=== PATIENT | female | born 1960 | race African-American/Black ===

== ENCOUNTER 2023-09-04 15:58 | Inpatient (IN) | payer MEDICAID ==
[~2023-09-04] VITALS: Ht 165.1 cm; Wt 73.5 kg
[2023-09-04] MEDS ORDERED: ASPIRIN 81MG TABLET PO ONE (16:30)
[2023-09-04] MEDS ORDERED: NITROGLYCERIN 0.4MG TABLET SL SL PRN (16:30)
[2023-09-04 16:59] LABS: HEMATOCRIT. 29.7 % (36.0-48.0); HEMOGLOBIN. 9.5 g/dL (12.0-16.0); MEAN CORPUSCULAR HEMOGLOBIN 30.4 pg (28.0-32.0); MEAN CORPUSCULAR HGB CONC 31.9 g/dL (31.0-37.0); MEAN CORPUSCULAR VOLUME 95.2 fL (81.0-99.0); MEAN PLATELET VOLUME 10.1 fl (7.4-10.4); PLATELET 212 x1000/uL (130-400); RED BLOOD CELL COUNT 3.12 mill/uL (4.2-5.4); RED CELL DISTRIBUTION WIDTH 14.7 % (11.6-14.6); WHITE BLOOD COUNT 14.7 x1000/uL (4.5-11.0)
[2023-09-04 17:00] LABS: DIFFERENTIAL COMMENT 1
[2023-09-04 17:13] LABS: ALANINE AMINOTRANSFERASE 29 IU/L (10-49); ALBUMIN 3.7 g/dL (3.2-4.8); ASPARTATE AMINOTRANSFERASE 19 IU/L (<34); BILIRUBIN TOTAL 0.2 mg/dL (0.1-1.0); CALCIUM 9.2 mg/dL (8.7-10.4); CARBON DIOXIDE 25 mEq/L (21-32); CHLORIDE 97 mEq/L (98-107); GLUCOSE 177 mg/dL (70-105); POTASSIUM 5.4 mEq/L (3.5-5.1); PROTEIN TOTAL 7.3 g/dL (6.0-8.3); SODIUM 134 mEq/L (136-145); UREA NITROGEN BLOOD 55 mg/dL (9-23)
[2023-09-04 17:19] LABS: CREATININE 6.2 mg/dL (0.6-1.0); TROPONIN I HIGH SENSITIVITY 238 ng/L (3.0-34)
[2023-09-04 17:48] LABS: PLATELET ESTIMATE NORMAL
[2023-09-04 17:49] LABS: ANISOCYTOSIS 1+; OVALOCYTES 1+
[2023-09-04] MEDS ORDERED: CEFTRIAXONE 1GM PREMIX 50 ML IV ONE (18:00)
[2023-09-04] MEDS ORDERED: ACETAMINOPHEN 325MG TABLET PO PRN (20:15)
[2023-09-04] MEDS ORDERED: ONDANSETRON HCL 4MG/2ML INJ IV PRN (20:15)
[2023-09-04] MEDS ORDERED: DEXTROSE 50% WATER 50ML SYRINGE IV PRN (20:15)
[2023-09-04] MEDS ORDERED: IPRATROPIUM/ALBUTEROL 0.5-3(2.5)MG/3ML NEB HHN PRN (20:15)
[2023-09-04] MEDS ORDERED: VANCOMYCIN 1G PREMIX 200 ML IV SCH (20:15)
[2023-09-04 20:48] LABS: IRON 32 ug/dL (50-170); TOTAL IRON BINDING CAPACITY 292 ug/dl (250-425)
[2023-09-04 20:56] LABS: FERRITIN 1557 ng/mL (10-291); FOLIC ACID (FOLATE) SERUM 14.63 ng/mL (>5.38); VITAMIN B12 SERUM 1226 pg/mL (211-911)
[2023-09-04 20:58] LABS: PARTIAL THROMBOPLASTIN TIME 77.7 sec (23.4-31.0)
[2023-09-04] MEDS: INSULIN LISPRO 100 UNITS/ML SUBCUT SCH (21:00)
[2023-09-04] MEDS: PIPERACILLIN/TAZO 3.375G/50ML 50 ML IV SCH (21:00)
[2023-09-04] MEDS ORDERED: VANCOMYCIN 1.5GM/250ML IV NR (21:00)
[2023-09-04] MEDS: ENOXAPARIN 30MG/0.3ML SYR SUBCUT SCH (21:00)
[2023-09-04] MEDS: BLOOD SUGAR DIAGNOSTIC STRIP TEST SCH (21:00)
[2023-09-05] VITALS (13 sets, daily range): BP systolic 151–186; BP diastolic 71–93; PULSE 86–104; RESP 14–19; TEMP 97.8–99.5
[2023-09-05 04:41] LABS: HEMATOCRIT. 30.1 % (36.0-48.0); HEMOGLOBIN. 9.8 g/dL (12.0-16.0); MEAN CORPUSCULAR HEMOGLOBIN 30.6 pg (28.0-32.0); MEAN CORPUSCULAR HGB CONC 32.4 g/dL (31.0-37.0); MEAN CORPUSCULAR VOLUME 94.5 fL (81.0-99.0); MEAN PLATELET VOLUME 9.9 fl (7.4-10.4); PLATELET 239 x1000/uL (130-400); RED BLOOD CELL COUNT 3.19 mill/uL (4.2-5.4); RED CELL DISTRIBUTION WIDTH 14.8 % (11.6-14.6)
[2023-09-05 04:51] LABS: DIFFERENTIAL COMMENT 1
[2023-09-05 05:05] LABS: ALANINE AMINOTRANSFERASE 21 IU/L (10-49); ALBUMIN 3.5 g/dL (3.2-4.8); ASPARTATE AMINOTRANSFERASE 11 IU/L (<34); BILIRUBIN TOTAL 0.2 mg/dL (0.1-1.0); CALCIUM 9.3 mg/dL (8.7-10.4); CARBON DIOXIDE 25 mEq/L (21-32); CHLORIDE 98 mEq/L (98-107); CHOLESTEROL 151 mg/dL (<200); GLUCOSE 163 mg/dL (70-105); HDL CHOLESTEROL 47 mg/dL (>65); LDL CHOLESTEROL 71 mg/dL (5-100); POTASSIUM 5.7 mEq/L (3.5-5.1); PROTEIN TOTAL 6.9 g/dL (6.0-8.3); SODIUM 135 mEq/L (136-145); T4 FREE 1.18 ng/dL (0.89-1.76); TRIGLYCERIDE 79 mg/dL (0-150); UREA NITROGEN BLOOD 59 mg/dL (9-23)
[2023-09-05 05:33] LABS: CREATININE 6.9 mg/dL (0.6-1.0)
[2023-09-05 05:46] LABS: PLATELET ESTIMATE NORMAL
[2023-09-05] MEDS ORDERED: VANCOMYCIN 1.5GM/250ML IV NR (06:15)
[2023-09-05] MEDS: INSULIN LISPRO 100 UNITS/ML SUBCUT SCH ×4 (08:20→21:37)
[2023-09-05] MEDS: PIPERACILLIN/TAZO 3.375G/50ML 50 ML IV SCH ×2 (09:00→21:26)
[2023-09-05] MEDS: BLOOD SUGAR DIAGNOSTIC STRIP TEST SCH ×4 (10:12→21:37)
[2023-09-05] MEDS: PANTOPRAZOLE SODIUM 40 MG/VIAL IV SCH (10:13)
[2023-09-05] MEDS ORDERED: NIFE-33 PO (10:51)
[2023-09-05] MEDS ORDERED: SITA50TA3 PO (10:51)
[2023-09-05] MEDS ORDERED: LABE200T9 PO (10:51)
[2023-09-05] MEDS ORDERED: BUME2TAB7 PO (10:51)
[2023-09-05] MEDS ORDERED: ATOR-2 PO (10:51)
[2023-09-05] MEDS ORDERED: MULT-1116 PO (10:51)
[2023-09-05] MEDS ORDERED: SEVE800T25 PO (10:51)
[2023-09-05] MEDS ORDERED: XALAO EACHEYE (10:51)
[2023-09-05] MEDS ORDERED: DORZ10DR8 EACHEYE (10:51)
[2023-09-05] MEDS ORDERED: INSULIN REGULAR (HUMULIN R) 300UNITS/3ML VIAL IV NR (12:30)
[2023-09-05] MEDS ORDERED: DEXTROSE 50% WATER 50ML SYRINGE IV NR (12:30)
[2023-09-05] MEDS: CLONIDINE 0.1MG TABLET PO PRN ×2 (12:47→21:26)
[2023-09-05] MEDS ORDERED: CALCIUM CHLORIDE 1,000 MG in DEXT 5% WATER 90 ML IV NR (13:30)
[2023-09-05 13:32] LABS: CREATINE KINASE MB FRACTION 2.9 ng/mL (0.5-3.6)
[2023-09-05 14:08] LABS: HEPATITIS A AB IGM NEGATIVE (Negative); HEPATITIS B CORE AB IGM NEGATIVE (Negative); HEPATITIS B SURFACE ANTIGEN NEGATIVE (Negative); HEPATITIS C AB NON REACTIVE (Neg) (Negative)
[2023-09-05] MEDS ORDERED: ASCO500C18 PO (17:37)
[2023-09-05 18:23] LABS: CALCIUM 9.3 mg/dL (8.7-10.4); POTASSIUM 4.5 mEq/L (3.5-5.1)
[2023-09-05 18:30] LABS: CREATININE 4.4 mg/dL (0.6-1.0)
[2023-09-05] MEDS: ACETAMINOPHEN 325MG TABLET PO PRN (21:27)
[2023-09-05] MEDS: ENOXAPARIN 30MG/0.3ML SYR SUBCUT SCH (21:35)
[2023-09-06 00:46] VITALS: BP 144/75; PULSE 94; RESP 19; TEMP 97.3
[2023-09-06 04:00] VITALS: BP 192/88; PULSE 59; RESP 18; TEMP 97.5
[2023-09-06] MEDS: BLOOD SUGAR DIAGNOSTIC STRIP TEST SCH ×4 (06:51→21:48)
[2023-09-06] MEDS: ACETAMINOPHEN 325MG TABLET PO PRN (07:11)
[2023-09-06 08:00] VITALS: BP 179/99; PULSE 94; RESP 18; TEMP 99.3
[2023-09-06] MEDS: INSULIN LISPRO 100 UNITS/ML SUBCUT SCH ×4 (08:10→21:54)
[2023-09-06] MEDS: PANTOPRAZOLE SODIUM 40 MG/VIAL IV SCH (08:44)
[2023-09-06 11:39] LABS: HEMATOCRIT. 29.1 % (36.0-48.0); HEMOGLOBIN. 9.1 g/dL (12.0-16.0); MEAN CORPUSCULAR HEMOGLOBIN 30.1 pg (28.0-32.0); MEAN CORPUSCULAR HGB CONC 31.3 g/dL (31.0-37.0); MEAN CORPUSCULAR VOLUME 96.2 fL (81.0-99.0); MEAN PLATELET VOLUME 9.9 fl (7.4-10.4); PLATELET 249 x1000/uL (130-400); RED BLOOD CELL COUNT 3.02 mill/uL (4.2-5.4); RED CELL DISTRIBUTION WIDTH 14.9 % (11.6-14.6); WHITE BLOOD COUNT 12.6 x1000/uL (4.5-11.0)
[2023-09-06 11:46] LABS: DIFFERENTIAL COMMENT 1
[2023-09-06 12:00] VITALS: BP 173/86; PULSE 95; RESP 18; TEMP 99.9
[2023-09-06 12:03] LABS: CALCIUM 9.3 mg/dL (8.7-10.4); POTASSIUM 4.9 mEq/L (3.5-5.1)
[2023-09-06] MEDS: PIPERACILLIN/TAZO 3.375G/50ML 50 ML IV SCH ×3 (12:32→22:40)
[2023-09-06 12:46] LABS: TROPONIN I HIGH SENSITIVITY 418 ng/L (3.0-34)
[2023-09-06 12:49] LABS: CREATININE 5.4 mg/dL (0.6-1.0)
[2023-09-06 16:00] VITALS: BP 189/90; PULSE 96; RESP 18; TEMP 99
[2023-09-06 16:23] LABS: PLATELET ESTIMATE NORMAL
[2023-09-06] MEDS: CLONIDINE 0.1MG TABLET PO PRN (17:19)
[2023-09-06 20:00] VITALS: BP 171/105; PULSE 100; RESP 20; TEMP 101.7
[2023-09-06] MEDS ORDERED: VANCOMYCIN 750MG PREMIX 150 ML IV NR (20:00)
[2023-09-06] MEDS: LATANOPROST 0.005% OPHTH DROPS 2.5ML EACHEYE SCH (20:37)
[2023-09-06] MEDS: ENOXAPARIN 30MG/0.3ML SYR SUBCUT SCH (21:50)
[2023-09-07] VITALS (13 sets, daily range): BP systolic 128–199; BP diastolic 71–103; PULSE 78–99; RESP 16–20; TEMP 97.8–98.7
[2023-09-07] MEDS: BLOOD SUGAR DIAGNOSTIC STRIP TEST SCH ×4 (07:40→21:00)
[2023-09-07] MEDS: INSULIN LISPRO 100 UNITS/ML SUBCUT SCH ×4 (08:08→21:00)
[2023-09-07] MEDS: PIPERACILLIN/TAZO 3.375G/50ML 50 ML IV SCH ×2 (09:09→21:44)
[2023-09-07] MEDS: PANTOPRAZOLE SODIUM 40 MG/VIAL IV SCH (09:09)
[2023-09-07 10:06] LABS: BASOPHILS % 0.3 % (0.0-2.0); EOSINOPHILS % 1.8 % (0.0-5.0); HEMATOCRIT. 28.7 % (36.0-48.0); HEMOGLOBIN. 8.8 g/dL (12.0-16.0); LYMPHOCYTES % 8.8 % (20.0-50.0); MEAN CORPUSCULAR HEMOGLOBIN 29.6 pg (28.0-32.0); MEAN CORPUSCULAR HGB CONC 30.7 g/dL (31.0-37.0); MEAN CORPUSCULAR VOLUME 96.4 fL (81.0-99.0); MONOCYTES % 7.4 % (2.0-8.0); NEUTROPHILS % 81.7 % (40.0-76.0); PLATELET 246 x1000/uL (130-400); RED BLOOD CELL COUNT 2.98 mill/uL (4.2-5.4); RED CELL DISTRIBUTION WIDTH 14.6 % (11.6-14.6); WHITE BLOOD COUNT 11.8 x1000/uL (4.5-11.0)
[2023-09-07 10:40] LABS: POTASSIUM 5.2 mEq/L (3.5-5.1)
[2023-09-07] MEDS: AMLODIPINE 10MG TABLET PO SCH (16:03)
[2023-09-07] MEDS: LATANOPROST 0.005% OPHTH DROPS 2.5ML EACHEYE SCH (21:00)
[2023-09-07] MEDS ORDERED: VANCOMYCIN 500MG PREMIX 100 ML IV SCH (21:00)
[2023-09-07] MEDS: CARVEDILOL 3.125 MG TABLET PO SCH (21:46)
[2023-09-07] MEDS: ENOXAPARIN 30MG/0.3ML SYR SUBCUT SCH (21:46)
[2023-09-07] MEDS: CLONIDINE 0.1MG TABLET PO PRN (21:50)
[2023-09-08] VITALS: BP 146/62; PULSE 89; RESP 18; TEMP 98
[2023-09-08 04:00] VITALS: BP 138/72; PULSE 92; RESP 19; TEMP 98.2
[2023-09-08] MEDS ORDERED: LIDOCAINE HCL 1% 10 MG/ML 10ML VIAL ONE (07:18)
[2023-09-08] MEDS: BLOOD SUGAR DIAGNOSTIC STRIP TEST SCH ×4 (07:40→21:27)
[2023-09-08 08:00] VITALS: BP 159/83; PULSE 83; RESP 20; TEMP 97
[2023-09-08] MEDS: INSULIN LISPRO 100 UNITS/ML SUBCUT SCH ×4 (08:10→21:27)
[2023-09-08] MEDS: CARVEDILOL 3.125 MG TABLET PO SCH ×2 (09:00→21:26)
[2023-09-08] MEDS: AMLODIPINE 10MG TABLET PO SCH (09:00)
[2023-09-08] MEDS: PIPERACILLIN/TAZO 3.375G/50ML 50 ML IV SCH ×2 (09:00→21:26)
[2023-09-08] MEDS: FAMOTIDINE 20MG/2ML VIAL IV SCH (09:00)
[2023-09-08 11:03] LABS: BASOPHILS % 0.4 % (0.0-2.0); EOSINOPHILS % 1.4 % (0.0-5.0); HEMATOCRIT. 29.7 % (36.0-48.0); HEMOGLOBIN. 9.8 g/dL (12.0-16.0); LYMPHOCYTES % 7.8 % (20.0-50.0); MEAN CORPUSCULAR HEMOGLOBIN 31.1 pg (28.0-32.0); MEAN CORPUSCULAR HGB CONC 32.9 g/dL (31.0-37.0); MEAN CORPUSCULAR VOLUME 94.6 fL (81.0-99.0); MEAN PLATELET VOLUME 9.7 fl (7.4-10.4); MONOCYTES % 6.1 % (2.0-8.0); NEUTROPHILS % 84.3 % (40.0-76.0); PLATELET 290 x1000/uL (130-400); RED BLOOD CELL COUNT 3.13 mill/uL (4.2-5.4); RED CELL DISTRIBUTION WIDTH 14.7 % (11.6-14.6)
[2023-09-08 11:19] LABS: CALCIUM 9.1 mg/dL (8.7-10.4); POTASSIUM 4.3 mEq/L (3.5-5.1)
[2023-09-08 12:00] VITALS: BP 140/85; PULSE 87; RESP 20; TEMP 97.8
[2023-09-08 16:00] VITALS: BP 129/76; PULSE 80; RESP 20; TEMP 97.2
[2023-09-08] MEDS ORDERED: HYDROCODONE/ACETAMINOPHEN 5/325MG TABLET PO PRN (17:15)
[2023-09-08 20:00] VITALS: BP 185/84; PULSE 94; RESP 19; TEMP 98
[2023-09-08] MEDS: LATANOPROST 0.005% OPHTH DROPS 2.5ML EACHEYE SCH (21:26)
[2023-09-08] MEDS: ENOXAPARIN 30MG/0.3ML SYR SUBCUT SCH (21:27)
[2023-09-08] MEDS: CLONIDINE 0.1MG TABLET PO PRN (21:29)
[2023-09-08] MEDS: ACETAMINOPHEN 325MG TABLET PO PRN (21:51)
[2023-09-09] VITALS (7 sets, daily range): BP systolic 67–157; BP diastolic 71–91; PULSE 80–90; RESP 18–20; TEMP 97–97.5
[2023-09-09] MEDS: BLOOD SUGAR DIAGNOSTIC STRIP TEST SCH ×4 (07:40→21:24)
[2023-09-09] MEDS: INSULIN LISPRO 100 UNITS/ML SUBCUT SCH ×4 (08:10→21:28)
[2023-09-09] MEDS: PIPERACILLIN/TAZO 3.375G/50ML 50 ML IV SCH (09:00)
[2023-09-09] MEDS: FAMOTIDINE 20MG/2ML VIAL IV SCH (09:00)
[2023-09-09] MEDS: CARVEDILOL 3.125 MG TABLET PO SCH ×2 (10:37→21:23)
[2023-09-09] MEDS: AMLODIPINE 10MG TABLET PO SCH (10:37)
[2023-09-09] MEDS ORDERED: CEFTRIAXONE SODIUM 1G VIAL IM SCH (14:30)
[2023-09-09] MEDS ORDERED: FAMOTIDINE 20MG TABLET PO SCH (20:00)
[2023-09-09] MEDS: ENOXAPARIN 30MG/0.3ML SYR SUBCUT SCH (21:21)
[2023-09-09] MEDS: ACETAMINOPHEN 325MG TABLET PO PRN (21:21)
[2023-09-09] MEDS: LATANOPROST 0.005% OPHTH DROPS 2.5ML EACHEYE SCH (21:39)
[2023-09-10] VITALS (12 sets, daily range): BP systolic 148–199; BP diastolic 72–95; PULSE 82–92; RESP 18–20; TEMP 97.2–98.4
[2023-09-10] MEDS: BLOOD SUGAR DIAGNOSTIC STRIP TEST SCH ×4 (07:40→21:13)
[2023-09-10] MEDS: INSULIN LISPRO 100 UNITS/ML SUBCUT SCH ×4 (08:10→21:13)
[2023-09-10] MEDS: FAMOTIDINE 20MG/2ML VIAL IV SCH (09:00)
[2023-09-10] MEDS: AMLODIPINE 10MG TABLET PO SCH (10:06)
[2023-09-10] MEDS: CLONIDINE 0.1MG TABLET PO PRN (10:06)
[2023-09-10] MEDS: CARVEDILOL 3.125 MG TABLET PO SCH ×2 (10:06→21:09)
[2023-09-10] MEDS ORDERED: LIDOCAINE HCL 1% 10 MG/ML 10ML VIAL ONE (12:53)
[2023-09-10] MEDS ORDERED: CEFTRIAXONE 2GM/50ML (ADDEASE) 50 ML IV SCH (17:45)
[2023-09-10] MEDS: CEFTRIAXONE SODIUM 2G VIAL IM SCH (18:56)
[2023-09-10] MEDS ORDERED: LIDOCAINE HCL 1% 10 MG/ML 5ML VIAL INJ ONE (19:00)
[2023-09-10] MEDS ORDERED: CEFTRIAXONE 2 G in DEXTROSE 5% WATER 50 ML IV SCH (20:00)
[2023-09-10] MEDS ORDERED: CEFAZOLIN 2GM/100ML 100 ML IV SCH ×2 (21:00→22:00)
[2023-09-10] MEDS: LATANOPROST 0.005% OPHTH DROPS 2.5ML EACHEYE SCH (21:09)
[2023-09-10] MEDS: ENOXAPARIN 30MG/0.3ML SYR SUBCUT SCH (21:09)
[2023-09-10 21:31] LABS: BASOPHILS % 0.7 % (0.0-2.0); HEMATOCRIT. 28.2 % (36.0-48.0); LYMPHOCYTES % 15.9 % (20.0-50.0); MEAN CORPUSCULAR HEMOGLOBIN 30.3 pg (28.0-32.0); MEAN CORPUSCULAR VOLUME 94.5 fL (81.0-99.0); MEAN PLATELET VOLUME 9.3 fl (7.4-10.4); MONOCYTES % 7.3 % (2.0-8.0); NEUTROPHILS % 73.1 % (40.0-76.0); PLATELET 326 x1000/uL (130-400); RED BLOOD CELL COUNT 2.98 mill/uL (4.2-5.4); RED CELL DISTRIBUTION WIDTH 14.4 % (11.6-14.6); WHITE BLOOD COUNT 8.9 x1000/uL (4.5-11.0)
[2023-09-10 21:45] LABS: CALCIUM 8.6 mg/dL (8.7-10.4); POTASSIUM 4.7 mEq/L (3.5-5.1)
[2023-09-10 21:46] LABS: CREATININE 7.4 mg/dL (0.6-1.0)
[2023-09-10 22:23] LABS: HEPATITIS A AB IGM NEGATIVE (Negative); HEPATITIS B CORE AB IGM NEGATIVE (Negative); HEPATITIS B SURFACE ANTIGEN NEGATIVE (Negative); HEPATITIS C AB NON REACTIVE (Neg) (Negative)
[2023-09-11] VITALS (12 sets, daily range): BP systolic 122–190; BP diastolic 60–98; PULSE 81–86; RESP 18–20; TEMP 97.8–98.5
[2023-09-11] MEDS: CLONIDINE 0.1MG TABLET PO PRN (01:18)
[2023-09-11] MEDS: ACETAMINOPHEN 325MG TABLET PO PRN ×2 (01:18→21:50)
[2023-09-11] MEDS: INSULIN LISPRO 100 UNITS/ML SUBCUT SCH ×4 (07:07→21:39)
[2023-09-11] MEDS: BLOOD SUGAR DIAGNOSTIC STRIP TEST SCH ×4 (07:07→21:08)
[2023-09-11] MEDS ORDERED: FAMOTIDINE 20MG TABLET PO SCH (09:00)
[2023-09-11] MEDS: CARVEDILOL 3.125 MG TABLET PO SCH ×2 (09:06→21:33)
[2023-09-11] MEDS: AMLODIPINE 10MG TABLET PO SCH (09:07)
[2023-09-11] MEDS ORDERED: CEFA2PLA9 IV (10:16)
[2023-09-11 18:03] LABS: BASOPHILS % 0.5 % (0.0-2.0); HEMATOCRIT. 28.3 % (36.0-48.0); HEMOGLOBIN. 9.2 g/dL (12.0-16.0); LYMPHOCYTES % 14.9 % (20.0-50.0); MEAN CORPUSCULAR HEMOGLOBIN 30.9 pg (28.0-32.0); MEAN CORPUSCULAR HGB CONC 32.4 g/dL (31.0-37.0); MEAN CORPUSCULAR VOLUME 95.4 fL (81.0-99.0); MEAN PLATELET VOLUME 8.9 fl (7.4-10.4); MONOCYTES % 8.1 % (2.0-8.0); NEUTROPHILS % 73.5 % (40.0-76.0); PLATELET 310 x1000/uL (130-400); RED BLOOD CELL COUNT 2.97 mill/uL (4.2-5.4); RED CELL DISTRIBUTION WIDTH 14.8 % (11.6-14.6); WHITE BLOOD COUNT 8.5 x1000/uL (4.5-11.0)
[2023-09-11] MEDS: CEFTRIAXONE SODIUM 2G VIAL IM SCH (18:04)
[2023-09-11 18:16] LABS: CALCIUM 8.4 mg/dL (8.7-10.4); POTASSIUM 4.6 mEq/L (3.5-5.1)
[2023-09-11 18:30] LABS: CREATININE 5.1 mg/dL (0.6-1.0)
[2023-09-11 18:55] LABS: HEPATITIS A AB IGM NEGATIVE (Negative); HEPATITIS B CORE AB IGM NEGATIVE (Negative); HEPATITIS B SURFACE ANTIGEN NEGATIVE (Negative); HEPATITIS C AB NON REACTIVE (Neg) (Negative)
[2023-09-11] MEDS ORDERED: LIDOCAINE HCL 1% 10 MG/ML 5ML VIAL INJ SCH (19:00)
[2023-09-11] MEDS: LATANOPROST 0.005% OPHTH DROPS 2.5ML EACHEYE SCH (21:33)
[2023-09-11] MEDS: ENOXAPARIN 30MG/0.3ML SYR SUBCUT SCH (21:39)
[2023-09-12] VITALS (14 sets, daily range): BP systolic 148–184; BP diastolic 68–91; PULSE 74–87; RESP 16–20; TEMP 97.1–98; O2SAT 97
[2023-09-12] MEDS: CLONIDINE 0.1MG TABLET PO PRN (04:39)
[2023-09-12] MEDS: BLOOD SUGAR DIAGNOSTIC STRIP TEST SCH ×2 (07:40→11:43)
[2023-09-12] MEDS: CARVEDILOL 3.125 MG TABLET PO SCH (08:32)
[2023-09-12] MEDS: AMLODIPINE 10MG TABLET PO SCH (08:42)
[2023-09-12] MEDS: INSULIN LISPRO 100 UNITS/ML SUBCUT SCH ×2 (08:48→12:54)
== END 2023-09-12 13:50 | DRG 721 ==
LOC: ER 15:58 → 7WST 18:47 → EDBEDREQ 18:53
PROVIDERS: ADMIT Internal Medicine; ATTEND Internal Medicine
PROC: 5A1D70Z Performance of Urinary Filtration, Intermittent, Less than 6 Hours Per Day (ICD-10-PCS; 2023-09-05)
PROC: 5A1D70Z Performance of Urinary Filtration, Intermittent, Less than 6 Hours Per Day (ICD-10-PCS; 2023-09-07)
PROC: 05PYX3Z Removal of Infusion Device from Upper Vein, External Approach (ICD-10-PCS; principal; 2023-09-08)
PROC: 5A1D70Z Performance of Urinary Filtration, Intermittent, Less than 6 Hours Per Day (ICD-10-PCS; 2023-09-10)
PROC: 02HV33Z Insertion of Infusion Device into Superior Vena Cava, Percutaneous Approach (ICD-10-PCS; 2023-09-11)
PROC: B548ZZA Ultrasonography of Superior Vena Cava, Guidance (ICD-10-PCS; 2023-09-11)
PROC: B5181ZA Fluoroscopy of Superior Vena Cava using Low Osmolar Contrast, Guidance (ICD-10-PCS; 2023-09-11)
PROC: 5A1D70Z Performance of Urinary Filtration, Intermittent, Less than 6 Hours Per Day (ICD-10-PCS; 2023-09-11)
PROC: 5A1D70Z Performance of Urinary Filtration, Intermittent, Less than 6 Hours Per Day (ICD-10-PCS; 2023-09-12)
DX: T80.211A Bloodstream infection due to central venous catheter, initial encounter (principal); A41.01 Sepsis due to Methicillin susceptible Staphylococcus aureus; I31.39 Other pericardial effusion (noninflammatory); I13.2 Hypertensive heart and chronic kidney disease with heart failure and with stage 5 chronic kidney disease, or end stage renal disease; I21.A1 Myocardial infarction type 2; I50.20 Unspecified systolic (congestive) heart failure; J18.9 Pneumonia, unspecified organism; D63.8 Anemia in other chronic diseases classified elsewhere; E87.1 Hypo-osmolality and hyponatremia; E11.319 Type 2 diabetes mellitus with unspecified diabetic retinopathy without macular edema; N18.6 End stage renal disease; E11.22 Type 2 diabetes mellitus with diabetic chronic kidney disease; E87.5 Hyperkalemia; H54.8 Legal blindness, as defined in USA; E78.5 Hyperlipidemia, unspecified; I16.0 Hypertensive urgency; I42.9 Cardiomyopathy, unspecified; Z79.899 Other long term (current) drug therapy; Z86.73 Personal history of transient ischemic attack (TIA), and cerebral infarction without residual deficits; Z88.6 Allergy status to analgesic agent; Z99.2 Dependence on renal dialysis; Z79.84 Long term (current) use of oral hypoglycemic drugs; Y84.1 Kidney dialysis as the cause of abnormal reaction of the patient, or of later complication, without mention of misadventure at the time of the procedure; Y92.89 Other specified places as the place of occurrence of the external cause
CPT/HCPCS: 36415; 36556; 36589; 71045; 76937; 77001; 78580; 80048; 80053; 80061; 80202; 82550; 82553; 82607; 82728; 82746; 82962; 83036; 83540; 83550; 83605; 83735; 83880; 84100; 84145; 84439; 84443; 84484; 85025; 85379; 86705; 86709; 87070; 87077; 87186; 87340; 90935; 93005; 93306; 93970; 99291; C1752; C1893; C9113; J0690; J0696; J1642; J1650; J1815; J2405; J2543; J3370; J3490; J7060

== ENCOUNTER 2024-06-03 18:05 | Inpatient (IN) | payer MEDICAID ==
[~2024-06-03] VITALS: Ht 162.6 cm; Wt 71.2 kg
[~2024-06-03 18:05] MED LIST: ASCO500C18 PO; ATOR-2 PO; BUME2TAB7 PO; CEFA2PLA9 IV; DORZ10DR8 EACHEYE; LABE200T9 PO; MULT-1116 PO; NIFE-33 PO; SEVE800T25 PO; SITA50TA3 PO; XALAO EACHEYE
[2024-06-03 18:33] VITALS: O2SAT 99
[2024-06-03] MEDS ORDERED: CLONIDINE 0.2MG TABLET PO ONE (19:45)
[2024-06-03 20:04] LABS: CHLORIDE 102 mEq/L (98-107); POTASSIUM 4.7 mEq/L (3.5-5.1); SODIUM 140 mEq/L (136-145)
[2024-06-03 20:05] LABS: CALCIUM 9.6 mg/dL (8.7-10.4); CARBON DIOXIDE 32 mEq/L (21-32)
[2024-06-03 20:08] LABS: D-DIMER 2.87 mg/L FEU (<0.50); PARTIAL THROMBOPLASTIN TIME 46.4 sec (23.4-31.0); PROTHROMBIN TIME 11.5 sec (9.6-11.0)
[2024-06-03 20:09] LABS: BASOPHILS % 1.4 % (0.0-2.0); EOSINOPHILS % 3.9 % (0.0-5.0); HEMATOCRIT. 34.6 % (36.0-48.0); HEMOGLOBIN. 11.5 g/dL (12.0-16.0); LYMPHOCYTES % 14.5 % (20.0-50.0); MEAN CORPUSCULAR HEMOGLOBIN 31.2 pg (28.0-32.0); MEAN CORPUSCULAR HGB CONC 33.3 g/dL (31.0-37.0); MEAN CORPUSCULAR VOLUME 93.5 fL (81.0-99.0); MONOCYTES % 7.6 % (2.0-8.0); NEUTROPHILS % 72.6 % (40.0-76.0); RED CELL DISTRIBUTION WIDTH 15.8 % (11.6-14.6); WHITE BLOOD COUNT 5.2 x1000/uL (4.5-11.0)
[2024-06-03 20:10] LABS: GLUCOSE 144 mg/dL (70-105); UREA NITROGEN BLOOD 26 mg/dL (9-23)
[2024-06-03 20:12] LABS: DIFFERENTIAL COMMENT 1
[2024-06-03 20:13] LABS: CREATININE 3.2 mg/dL (0.6-1.0)
[2024-06-03 20:18] LABS: TROPONIN I HIGH SENSITIVITY 156 ng/L (3.0-34)
[2024-06-03] MEDS: MORPHINE SULFATE 4 MG/ML INJ (FOR IV/IM USE) IV STA (20:42)
[2024-06-03] MEDS: ONDANSETRON HCL 4MG/2ML INJ IV STA (20:42)
[2024-06-03] MEDS: ASPIRIN 325MG EC TABLET PO ONE (21:04)
[2024-06-03] MEDS: NITROGLYCERIN 0.4MG TABLET SL SL ONE (21:04)
[2024-06-03] MEDS: CLONIDINE 0.1MG TABLET PO NR (21:04)
[2024-06-03 21:10] LABS: MEAN PLATELET VOLUME 11.5 fl (7.4-10.4); PLATELET 164 x1000/uL (130-400)
[2024-06-03] MEDS: HYDRALAZINE 20MG/ML VIAL IV ONE (22:04)
[2024-06-04 00:20] VITALS: BP 168/101; PULSE 106; RESP 18; TEMP 36.14
[2024-06-04] MEDS ORDERED: ONDANSETRON HCL 4MG/2ML INJ IV PRN (01:00)
[2024-06-04] MEDS ORDERED: NON FORMULARY MED XX SCH ×5 (01:15)
[2024-06-04] MEDS ORDERED: DEXTROSE 50% WATER 50ML SYRINGE IV PRN (01:30)
[2024-06-04 04:00] VITALS: BP 164/85; PULSE 82; RESP 17; TEMP 36.00288; O2SAT 99
[2024-06-04] MEDS: BLOOD SUGAR DIAGNOSTIC STRIP TEST SCH (07:17)
[2024-06-04] MEDS: INSULIN LISPRO 100 UNITS/ML SUBCUT SCH (07:17)
[2024-06-04 08:00] VITALS: BP 192/100; PULSE 85; RESP 18; TEMP 37.11408; O2SAT 99
[2024-06-04] MEDS: NIFEDIPINE XL 90MG TAB PO SCH (08:32)
[2024-06-04] MEDS: MULTIVITAMINS,THER W-MINERALS TABLET PO SCH (08:32)
[2024-06-04] MEDS: SEVELAMER CARBONATE 800 MG TABLET PO SCH (08:32)
[2024-06-04] MEDS: LABETALOL HCL 200MG TABLET PO SCH (08:32)
[2024-06-04] MEDS: ASCORBIC ACID 500 MG TABLET PO SCH (08:33)
[2024-06-04] MEDS: BUMETANIDE 1MG TABLET PO SCH (08:33)
[2024-06-04] MEDS: ACETAMINOPHEN 325MG TABLET PO PRN (08:36)
[2024-06-04] MEDS: DORZOLAMIDE 2% OPHTH 10 ML BOTTLE EACHEYE SCH (09:00)
[2024-06-04 09:01] LABS: BASOPHILS % 1.5 % (0.0-2.0); HEMATOCRIT. 30.4 % (36.0-48.0); HEMOGLOBIN. 10.3 g/dL (12.0-16.0); LYMPHOCYTES % 21.4 % (20.0-50.0); MEAN CORPUSCULAR HGB CONC 33.8 g/dL (31.0-37.0); MEAN CORPUSCULAR VOLUME 94.7 fL (81.0-99.0); MEAN PLATELET VOLUME 10.9 fl (7.4-10.4); MONOCYTES % 8.9 % (2.0-8.0); NEUTROPHILS % 65.2 % (40.0-76.0); PLATELET 158 x1000/uL (130-400); RED BLOOD CELL COUNT 3.22 mill/uL (4.2-5.4); RED CELL DISTRIBUTION WIDTH 15.6 % (11.6-14.6); WHITE BLOOD COUNT 4.2 x1000/uL (4.5-11.0)
[2024-06-04 09:32] LABS: CALCIUM 9.7 mg/dL (8.7-10.4)
[2024-06-04 09:37] LABS: CREATININE 3.7 mg/dL (0.6-1.0)
[2024-06-04 12:00] VITALS: BP 175/89; PULSE 77; RESP 18; TEMP 37.05852; O2SAT 99
[2024-06-04] MEDS: LOSARTAN 50 MG TABLET PO SCH ×2 (13:16→21:12)
[2024-06-04 16:00] VITALS: BP 189/101; PULSE 78; RESP 18; TEMP 37.05852; O2SAT 98
[2024-06-04 16:33] LABS: HEPATITIS B SURFACE ANTIGEN NEGATIVE (Negative)
[2024-06-04 16:49] LABS: TROPONIN I HIGH SENSITIVITY 166 ng/L (3.0-34)
[2024-06-04 16:54] LABS: HEPATITIS A AB IGM NEGATIVE (Negative); HEPATITIS B CORE AB IGM NEGATIVE (Negative)
[2024-06-04 16:55] LABS: HEPATITIS C AB NON REACTIVE (Neg) (Negative)
[2024-06-04] MEDS: ASPIRIN 81MG TABLET PO SCH (16:57)
[2024-06-04] MEDS: ISOSORBIDE MONONITRATE 30MG TABLET SR 24HR PO SCH (16:57)
[2024-06-04] MEDS: CLONIDINE 0.1MG TABLET PO PRN (18:12)
[2024-06-04 20:00] VITALS: BP 178/96; PULSE 79; RESP 20; TEMP 36.22512; O2SAT 96
[2024-06-04] MEDS: LATANOPROST 0.005% OPHTH DROPS 2.5ML EACHEYE SCH (21:11)
[2024-06-04] MEDS: CARVEDILOL 12.5MG TABLET PO SCH (21:11)
[2024-06-04] MEDS: ATORVASTATIN CALCIUM 40MG TABLET PO SCH (21:12)
[2024-06-04] MEDS: NIFEDIPINE XL 60MG TAB PO SCH (21:12)
[2024-06-04] MEDS: HYDROCODONE/ACETAMINOPHEN 5/325MG TABLET PO PRN (21:45)
[2024-06-05] VITALS: BP 150/75; PULSE 76; RESP 18; TEMP 36.44736; O2SAT 96
[2024-06-05 04:00] VITALS: BP 142/65; PULSE 77; RESP 18; TEMP 36.78072; O2SAT 96
[2024-06-05 09:00] VITALS: BP 143/69; PULSE 81; RESP 18; TEMP 35.72508; O2SAT 96
[2024-06-05 12:00] VITALS: BP 168/85; PULSE 81; RESP 22; TEMP 37.16964; O2SAT 95
[2024-06-05 16:00] VITALS: BP 190/97; PULSE 78; RESP 19; TEMP 36.61404; O2SAT 96
[2024-06-05 20:00] VITALS: BP 170/83; PULSE 85; RESP 20; TEMP 35.89176; O2SAT 97
[2024-06-05] MEDS: CARVEDILOL 12.5MG TABLET PO SCH (21:00)
[2024-06-05] MEDS: ISOSORBIDE MONONITRATE 30MG TABLET SR 24HR PO NR (21:05)
[2024-06-05] MEDS: CARVEDILOL 12.5MG TABLET PO NR (21:06)
[2024-06-06] VITALS (17 sets, daily range): BP systolic 134–185; BP diastolic 68–95; PULSE 60–86; RESP 14–20; TEMP 35.66952–36.83628; O2SAT 94–100
[2024-06-06 07:23] LABS: CARBON DIOXIDE 30 mEq/L (21-32); CHLORIDE 101 mEq/L (98-107); POTASSIUM 6.1 mEq/L (3.5-5.1); SODIUM 138 mEq/L (136-145)
[2024-06-06 07:24] LABS: CALCIUM 9.5 mg/dL (8.7-10.4)
[2024-06-06 07:29] LABS: GLUCOSE 191 mg/dL (70-105); UREA NITROGEN BLOOD 53 mg/dL (9-23)
[2024-06-06 07:31] LABS: BASOPHILS % 1.1 % (0.0-2.0); EOSINOPHILS % 3.2 % (0.0-5.0); HEMATOCRIT. 31.1 % (36.0-48.0); HEMOGLOBIN. 10.5 g/dL (12.0-16.0); LYMPHOCYTES % 16.2 % (20.0-50.0); MEAN CORPUSCULAR HEMOGLOBIN 31.8 pg (28.0-32.0); MEAN CORPUSCULAR HGB CONC 33.7 g/dL (31.0-37.0); MEAN CORPUSCULAR VOLUME 94.5 fL (81.0-99.0); MEAN PLATELET VOLUME 10.9 fl (7.4-10.4); NEUTROPHILS % 69.5 % (40.0-76.0); PHOSPHORUS 4.8 mg/dL (2.5-4.9); PLATELET 165 x1000/uL (130-400); RED BLOOD CELL COUNT 3.29 mill/uL (4.2-5.4); RED CELL DISTRIBUTION WIDTH 15.7 % (11.6-14.6); WHITE BLOOD COUNT 5.1 x1000/uL (4.5-11.0)
[2024-06-06] MEDS ORDERED: LIDOCAINE HCL 1% 10 MG/ML 10ML VIAL ONE (07:36)
[2024-06-06 08:21] LABS: CREATININE 5.5 mg/dL (0.6-1.0)
[2024-06-06] MEDS: ISOSORBIDE MONONITRATE 60MG TABLET SR 24HR PO SCH (11:16)
[2024-06-07] VITALS: BP 165/78; PULSE 80; RESP 18; TEMP 36.6696; O2SAT 98
[2024-06-07 04:00] VITALS: BP 162/78; PULSE 77; RESP 18; TEMP 37.00296; O2SAT 97
[2024-06-07 06:37] LABS: POTASSIUM 5.2 mEq/L (3.5-5.1)
[2024-06-07 06:58] LABS: CREATININE 5.1 mg/dL (0.6-1.0)
[2024-06-07 07:11] LABS: BASOPHILS % 1.9 % (0.0-2.0); DIFFERENTIAL COMMENT 0; EOSINOPHILS % 2.6 % (0.0-5.0); HEMATOCRIT. 29.6 % (36.0-48.0); HEMOGLOBIN. 9.6 g/dL (12.0-16.0); LYMPHOCYTES % 15.4 % (20.0-50.0); MEAN CORPUSCULAR HEMOGLOBIN 30.6 pg (28.0-32.0); MEAN CORPUSCULAR HGB CONC 32.5 g/dL (31.0-37.0); MEAN CORPUSCULAR VOLUME 94.1 fL (81.0-99.0); MONOCYTES % 8.4 % (2.0-8.0); NEUTROPHILS % 71.7 % (40.0-76.0); PLATELET 154 x1000/uL (130-400); RED BLOOD CELL COUNT 3.14 mill/uL (4.2-5.4); RED CELL DISTRIBUTION WIDTH 15.6 % (11.6-14.6); WHITE BLOOD COUNT 4.4 x1000/uL (4.5-11.0)
[2024-06-07 08:08] VITALS: BP_SYST 139; BP_SYST 175; BP_DIAS 49; BP_DIAS 59; PULSE 78; RESP 19; RESP 20; TEMP 37.00296; O2SAT 100; O2SAT 98
[2024-06-07 08:50] VITALS: PULSE 78
[2024-06-07] MEDS ORDERED: HEPARIN 1000 UNITS/ML 10ML ONE (09:24)
[2024-06-07] MEDS ORDERED: MIDAZOLAM HCL 2 MG/2 ML VIAL ONE (09:24)
[2024-06-07] MEDS ORDERED: LIDOCAINE HCL 1% 20ML VIAL ONE (09:24)
[2024-06-07] MEDS ORDERED: DIPHENHYDRAMINE 50MG/ML VIAL ONE (09:24)
[2024-06-07] MEDS ORDERED: FENTANYL CITRATE/PF 50MCG/ML 2ML VIAL ONE (09:24)
[2024-06-07] MEDS ORDERED: IODIXANOL 320MG/ML 100 ML BOTTLE IV ONE (09:25)
[2024-06-07] MEDS ORDERED: VERAPAMIL HCL 2.5 MG/1 ML 2ML VIAL IV ONE (09:41)
[2024-06-07] MEDS ORDERED: IODIXANOL 320 MG/ML 150ML BOTTLE IV ONE (10:24)
[2024-06-07] MEDS ORDERED: EPINEPHRINE 0.1MG/ML (1:10,000) 10ML SYR ONE ×2 (10:36→10:43)
[2024-06-07] MEDS ORDERED: DOBUTAMINE 250MG PREMIX 250 ML IV ONE (10:56)
[2024-06-07] MEDS ORDERED: DOPAMINE 400MG/250ML PREMIX 250 ML IV ONE (10:58)
[2024-06-07] MEDS ORDERED: EPINEPHRINE 5 MG in SODIUM CHLORIDE 0.9% 250 ML IV PRN (11:15)
== END 2024-06-07 11:07 | DRG 192 ==
LOC: ER 18:05 → EDBEDREQ 21:42 → 7WST 23:47
PROVIDERS: ADMIT Internal Medicine; ATTEND Internal Medicine
PROC: 02HV33Z Insertion of Infusion Device into Superior Vena Cava, Percutaneous Approach (ICD-10-PCS; 2024-06-06)
PROC: B548ZZA Ultrasonography of Superior Vena Cava, Guidance (ICD-10-PCS; 2024-06-06)
PROC: 4A023N7 Measurement of Cardiac Sampling and Pressure, Left Heart, Percutaneous Approach (ICD-10-PCS; principal; 2024-06-07)
PROC: B211YZZ Fluoroscopy of Multiple Coronary Arteries using Other Contrast (ICD-10-PCS; 2024-06-07)
PROC: 5A12012 Performance of Cardiac Output, Single, Manual (ICD-10-PCS; 2024-06-07)
PROC: 5A1D70Z Performance of Urinary Filtration, Intermittent, Less than 6 Hours Per Day (ICD-10-PCS; 2024-06-07)
DX: I13.2 Hypertensive heart and chronic kidney disease with heart failure and with stage 5 chronic kidney disease, or end stage renal disease (principal); I21.4 Non-ST elevation (NSTEMI) myocardial infarction; N18.6 End stage renal disease; D63.8 Anemia in other chronic diseases classified elsewhere; Z20.822 Contact with and (suspected) exposure to COVID-19; I50.23 Acute on chronic systolic (congestive) heart failure; I25.10 Atherosclerotic heart disease of native coronary artery without angina pectoris; E11.22 Type 2 diabetes mellitus with diabetic chronic kidney disease; M54.50 Low back pain, unspecified; E11.65 Type 2 diabetes mellitus with hyperglycemia; I46.9 Cardiac arrest, cause unspecified; I16.0 Hypertensive urgency; Z99.2 Dependence on renal dialysis; Z86.73 Personal history of transient ischemic attack (TIA), and cerebral infarction without residual deficits; Z74.01 Bed confinement status; Z88.6 Allergy status to analgesic agent
CPT/HCPCS: 36415; 36573; 71045; 71275; 78580; 80048; 80061; 82962; 83036; 83735; 83880; 84100; 84484; 85025; 85379; 86705; 86709; 87340; 87426; 90935; 92950; 93005; 93458; 93970; 99285; C1725; C1769; C1887; C1893; J0360; J1200; J1250; J1265; J1644; J1815; J2250; J2270; J2405; J3010; J3490; Q9967